=== PATIENT | female | born 1975 | race Caucasian/White ===

== ENCOUNTER 2019-03-30 22:25 | Emergency (ER) | payer OTHER ==
[2019-03-30 22:38] VITALS: BP 138/74; PULSE 61; TEMP 98.3; BMI 32.9
[2019-03-30 23:53] LABS: HEMATOCRIT 38.4 % (32.4-45.2); HEMOGLOBIN 13.2 GM/dL (10.7-15.3); MCHC 34.3 g/dl (32.0-36.0); MEAN CELL VOLUME 96.2 fl (80-96); MEAN PLT VOLUME 9.2 fl (7.5-11.1); PLATELET COUNT 251 K/MM3 (134-434); RBC 3.99 M/mm3 (3.60-5.2); RDW 13.4 % (11.6-15.6); WHITE BLOOD COUNT 8.6 K/mm3 (4.0-10.0)
[2019-03-31 00:16] LABS: INR 0.92 (0.83-1.09); PROTHROMBIN TIME (PATIENT) 10.9 SEC (9.7-13.0)
[2019-03-31 00:19] LABS: ACTIVATED PTT 31.1 SECONDS (25.2-36.5)
[2019-03-31 00:27] LABS: ALBUMIN 3.2 g/dl (3.4-5.0); ALK PHOS 61 U/L (45-117); ANION GAP 5 MMOL/L (8-16); BILIRUBIN,TOTAL 0.3 mg/dL (0.2-1); BLOOD UREA NITROGEN 19 mg/dL (7-18); CHLORIDE 102 mmol/L (98-107); CO2 27 mmol/L (21-32); CREATININE 0.6 mg/dL (0.55-1.3); GLUCOSE,RANDOM 81 mg/dL (74-106); POTASSIUM 4.8 mmol/L (3.5-5.1); SGOT/AST 35 U/L (15-37); SGPT/ALT 25 U/L (13-61); SODIUM 134 mmol/L (136-145); TOT PROT 7.2 g/dl (6.4-8.2)
--- NOTE | 2019-03-31 01:05 | PDOC ---
Documentation entered by Paulo Disla SCRIBE, acting as scribe for Layne Noyola DO. Layne Noyola DO: This documentation has been prepared by the Nighat altamirano Matthew, SCRIBE, under my direction and personally reviewed by me in its entirety. I confirm that the documentation accurately reflects all work, treatment, procedures, and medical decision making performed by me. History of Present Illness - General Chief Complaint: Vaginal Bleeding Stated Complaint: 11 WEEKS /BLEEDING Time Seen by Provider: 03/30/19 22:44 History Source: Patient Exam Limitations: No Limitations - History of Present Illness Initial Comments: 03/30/19 23:20 Patient is a 44 year old female, 11 weeks , with a significant past medical history of who presents to the ED with complaints of vaginal bleeding that began x3 days ago. Patient reports experiencing vaginal bleeding for 3 days stating the blood was red/brown in coloration. She reports calling her OB office but was unable to reach them as they are currently unavailable but states she has an appointment on friday. Patient reports coming into the ED for further evaluation after vaginal bleeding did not subside over time. Denies chest pain, sob. Denies nausea,vomiting. Denies fevers, chills. Denies contact with sick individuals, out of state travelling. Denies dysuria, hematuria. Denies constipation, diarrhea. Denies any other symptoms. Allergies: NKDA Social history: No smoking. No alcohol. No illicit drugs. Surgical history: None PMD: None Past History - Past Medical History Allergies/Adverse Reactions: Allergies Allergy/AdvReac Type Severity Reaction Status Date / Time No Known Allergies Allergy Verified 03/31/19 00:23 - Suicide/Smoking/Psychosocial Hx Smoking History: Never smoked Hx Alcohol Use: No Drug/Substance Use Hx: No Review of Systems - Review of Systems Able to Perform ROS?: Yes Comments:: 03/30/19 23:20 GENERAL/CONSTITUTIONAL: No fever or chills. No weakness. HEAD, EYES, EARS, NOSE AND THROAT: No change in vision. No ear pain or discharge. No sore throat. GASTROINTESTINAL: No nausea, vomiting, diarrhea or constipation. GENITOURINARY: +vaginal bleeding. No dysuria, frequency, or change in urination. CARDIOVASCULAR: No chest pain or shortness of breath. RESPIRATORY: No cough, wheezing, or hemoptysis. MUSCULOSKELETAL: No joint or muscle swelling or pain. No neck or back pain. SKIN: No rash NEUROLOGIC: No headache, vertigo, loss of consciousness, or change in strength/ sensation. ENDOCRINE: No increased thirst. No abnormal weight change. HEMATOLOGIC/LYMPHATIC: No anemia, easy bleeding, or history of blood clots. ALLERGIC/IMMUNOLOGIC: No hives or skin allergy. *Physical Exam - Vital Signs Last Vital Signs Temp Pulse Resp BP Pulse Ox 98.3 F 61 17 138/74 100 03/30/19 22:34 03/30/19 22:34 03/30/19 22:34 03/30/19 22:34 03/30/19 22:34 - Physical Exam Comments: 03/30/19 23:20 GENERAL: Awake, in no acute distress HEAD: No signs of trauma EYES: PERRLA, EOMI, LUNGS: Breath sounds equal, clear to auscultation bilaterally. No wheezes, and no crackles. Normal work of breathing. HEART: Regular rate and rhythm, normal S1 and S2, no murmurs, rubs or gallops ABDOMEN: Soft, nontender, normoactive bowel sounds. No guarding, no rebound. No masses. Non-distended. : Fresh blood in the vaginal vault, no active hemorrhage, cervical os closed, uterus is small and then stated dates, no tenderness CHEST WALL: BACK: No midline tenderness. EXTREMITIES: Normal range of motion, no edema. No clubbing or cyanosis. No erythema, or tenderness NEUROLOGICAL: Alert, and fully oriented x4, Cranial nerves II through XII grossly intact. Normal speech, normal gait. SKIN: Warm, Dry, normal turgor, no rashes or lesions noted. 03/31/19 00:55 ED Treatment Course - LABORATORY CBC & Chemistry Diagram: 03/30/19 23:40 03/30/19 23:11 - ADDITIONAL ORDERS Additional order review: Laboratory Results 03/30/19 03/30/19 03/30/19 23:40 23:40 23:11 PT with INR 10.90 INR 0.92 PTT (Actin FS) 31.1 Sodium 134 L Potassium 4.8 Chloride 102 Carbon Dioxide 27 Anion Gap 5 L BUN 19 H Creatinine 0.6 Creat Clearance w eGFR 108.60 Random Glucose 81 Calcium 9.0 Total Bilirubin 0.3 AST 35 ALT 25 Alkaline Phosphatase 61 Total Protein 7.2 Albumin 3.2 L Beta HCG, Quant 6623.0 03/30/19 23:40 RBC 3.99 MCV 96.2 H MCHC 34.3 RDW 13.4 MPV 9.2 - RADIOLOGY Radiology Studies Ordered: Category Date Time Status TRANSVAGINAL US PREG [US] Stat Ultrasound 03/30/19 23:11 Taken *DC/Admit/Observation/Transfer Diagnosis at time of Disposition: Missed with demise before 20 completed weeks of gestation - Discharge Dispostion Disposition: HOME Condition at time of disposition: Stable Decision to Admit order: No - Referrals Referrals: Jade Edgar MD [Staff Physician] - - Patient Instructions Printed Discharge Instructions: DI for Threatened Additional Instructions: Follow-up with your REGISTRY NURSE tomorrow morning. We will need a repeat ultrasound, at this time it appears that you may have had a miscarriage. If you develop fever or heavy bleeding return to the emergency department. - Post Discharge Activity - Attestations Scribe Attestion: 03/30/19 23:10 Documentation prepared by Paulo Disla, acting as medical certification specialist for Layne Noyola DO. Physician Attestion: 03/31/19 01:00 I, Dr Layne Noyola, attest that this document has been prepared under my direction and personally reviewed by me in its entirety. I further attest, that it accurately reflects all work, procedures and medical decision making performed by me.
== END 2019-03-31 04:00 | disposition home or self-care (01) ==
LOC: JER 22:25
DX: O26.891 Other specified pregnancy related conditions, first trimester (principal); O02.1 Missed abortion; Z3A.11 11 weeks gestation of pregnancy
CPT/HCPCS: 36415; 76817-TC; 80053; 84702; 85027; 85610; 85730; 86850; 86900; 86901; 99282-25

== ENCOUNTER 2019-04-01 17:46 | Emergency (ER) | payer OTHER ==
[2019-04-01 17:51] VITALS: BMI 32.0
--- NOTE | 2019-04-01 17:52 | PDOC ---
Rapid Medical Evaluation Chief Complaint: Vaginal Bleeding Time Seen by Provider: 04/01/19 17:49 Medical Evaluation: Allergies Allergy/AdvReac Type Severity Reaction Status Date / Time No Known Allergies Allergy Verified 03/31/19 00:23 04/01/19 17:50 I have performed a brief in-person evaluation of this patient. The patient presents with a chief complaint of: 11 weeks with vaginal bleeding for 5 days which has worsened today with cramping abdominal pains Pertinent physical exam findings: A&O in moderate distress holding abdomen I have ordered the following: CBC, CMP, T&s The patient will proceed to the ED for further evaluation. Discharge Disposition - Diagnosis Vaginal bleeding - Discharge Dispostion Condition at time of disposition: Stable - Referrals - Patient Instructions - Post Discharge Activity
[2019-04-01 18:52] LABS: BASO % 0.3 % (0-2.0); EOS % 1.1 % (0-4.5); HEMOGLOBIN 12.8 GM/dL (10.7-15.3); LYMPH % 14.9 % (8-40); MCH 31.7 pg (25.7-33.7); MCHC 32.9 g/dl (32.0-36.0); MEAN CELL VOLUME 96.6 fl (80-96); MONO % 3.6 % (3.8-10.2); NEUT % 80.1 % (42.8-82.8); PLATELET COUNT 243 K/MM3 (134-434); RBC 4.04 M/mm3 (3.60-5.2); RDW 13.3 % (11.6-15.6); WHITE BLOOD COUNT 14.6 K/mm3 (4.0-10.0)
[2019-04-01 19:36] LABS: ALBUMIN 3.5 g/dl (3.4-5.0); BILIRUBIN,TOTAL 0.3 mg/dL (0.2-1); CALCIUM 9.3 mg/dL (8.5-10.1); CREATININE 0.8 mg/dL (0.55-1.3); POTASSIUM 4.1 mmol/L (3.5-5.1); TOT PROT 7.1 g/dl (6.4-8.2)
--- NOTE | 2019-04-01 19:55 | PDOC ---
History of Present Illness - General Chief Complaint: Vaginal Bleeding Stated Complaint: VAGINAL BLEED Time Seen by Provider: 04/01/19 17:49 History Source: Patient, Old Records Exam Limitations: No Limitations - History of Present Illness Travel History: No Initial Comments: 04/01/19 19:59 HISTORY OF PRESENT ILLNESS: This is a 44-year-old with an LMP- 01/17 presents emergency department for evaluation of vaginal bleeding occurring 2 pads per hour. Patient reports strong abdominal cramping rated 8/10 is located in the mid lower abdomen without radiation. Patient reports she was seen and evaluated here and 03/30 when she had an ultrasound that revealed IUP with gestational age of 6 weeks 1 day without detectable heartbeat. Patient then followed up with her NEW PRODUCT TRAINER was told similar findings on their exam. No recent travel or sick contacts. PAST MEDICAL HISTORY: Denies past medical history SURGICAL HISTORY: Denies ALLERGIES: No known drug allergies REVIEW OF SYSTEMS General/Constitutional: Denies fever or chills. Denies weakness, weight change. HEENT: Denies change in vision. Denies ear pain or discharge. Denies sore throat. Cardiovascular: Denies chest pain or shortness of breath. Respiratory: Denies cough, wheezing, or hemoptysis. Gastrointestinal: Denies nausea, vomiting, diarrhea or constipation. Denies rectal bleeding. Genitourinary: Denies dysuria, frequency, or change in urination. Musculoskeletal: Denies joint or muscle swelling or pain. Denies neck or back pain. Skin and breasts: Denies rash or easy bruising. Neurologic: Denies headache, vertigo, loss of consciousness, or loss of sensation. Psychiatric: Denies depression or anxiety. Endocrine: Denies increased thirst. Denies abnormal weight change. Hematologic/Lymphatic: Denies anemia, easy bleeding, or history of blood clots. Allergic/Immunologic: Denies hives or skin allergy. Denies latex allergy. PHYSICAL EXAM General Appearance: Well-appearing, appropriately dressed. No apparent distress , no intoxication. Respiratory/Chest: Lungs CTAB. No shortness of breath, chest tenderness, respiratory distress, accessory muscle use. No crackles, rales, rhonchi, stridor , wheezing, dullness Cardiovascular: RRR. S1, S2. No JVD, murmur, bradycardia, tachycardia. Gastrointestinal/Abdominal: Normal bowel sounds. Abdomen soft, non-distended. Suprapubic tenderness. No rebound tenderness. No organomegaly, pulsatile mass, guarding, hernia, hepatomegaly, splenomegaly. 04/01/19 20:02 Past History - Past Medical History Allergies/Adverse Reactions: Allergies Allergy/AdvReac Type Severity Reaction Status Date / Time No Known Allergies Allergy Verified 04/01/19 17:51 Home Medications: Ambulatory Orders Prenat 115/Iron Fum/Folic/Dss [ 19 Tablet] 1 each PO DAILY 04/01/19 COPD: No - Reproductive History Is Patient Now?: Yes (#): 3 Para: 2 Therapeutic (s) & number: Yes - Suicide/Smoking/Psychosocial Hx Smoking History: Never smoked Hx Alcohol Use: No Drug/Substance Use Hx: No *Physical Exam - Vital Signs Last Vital Signs Temp Pulse Resp BP Pulse Ox 97.6 F 64 16 114/78 100 04/01/19 17:49 04/01/19 17:49 04/01/19 17:49 04/01/19 17:49 04/01/19 17:49 ED Treatment Course - LABORATORY CBC & Chemistry Diagram: 04/01/19 18:38 04/01/19 18:38 - ADDITIONAL ORDERS Additional order review: Laboratory Results 04/01/19 18:38 Sodium 139 Potassium 4.1 Chloride 108 H Carbon Dioxide 25 Anion Gap 7 L BUN 18 Creatinine 0.8 Est GFR (CKD-EPI)AfAm 103.92 Est GFR (CKD-EPI)NonAf 89.66 Random Glucose 140 H Calcium 9.3 Total Bilirubin 0.3 AST 19 ALT 25 Alkaline Phosphatase 64 Total Protein 7.1 Albumin 3.5 04/01/19 18:38 RBC 4.04 MCV 96.6 H MCHC 32.9 RDW 13.3 MPV 9.0 Neutrophils % 80.1 Lymphocytes % 14.9 Monocytes % 3.6 L Eosinophils % 1.1 Basophils % 0.3 - RADIOLOGY Radiology Studies Ordered: Category Date Time Status TRANSVAGINAL US PREG [US] Stat Ultrasound 04/01/19 19:20 Ordered Medical Decision Making - Medical Decision Making 04/01/19 20:03 A/P: 44-year-old woman with vaginal bleeding and lower abdominal cramping in early status post ultrasound revealed ? demise Differential diagnosis includes but is not limited to- threatened , missed , inevitable , complete Labs Urine Transvaginal ultrasound Tylenol 1 g orally now Reassess 04/01/19 20:04 04/01/19 21:59 Ultrasound as read by Dr. Ryan: Normal thickness of the endometrial stripe without evidence of intrauterine . Heterogeneously echogenic material within the cervical canal measuring 1.5 cm in AP them mention suggestive of blood clots." Ultrasound is needed to rule out retained products of conception. There is trace fluid in the cul-de-sac. H&H-12.8/39.0. WBC 14,600. No shift noted. Beta hCG testing 2481 down from 6623 on 03/30. I will discharge the patient home to follow-up with her controller instructor for reevaluation of retained products of conception. *DC/Admit/Observation/Transfer Diagnosis at time of Disposition: Complete - Discharge Dispostion Disposition: HOME Condition at time of disposition: Stable Decision to Admit order: No - Referrals - Patient Instructions Additional Instructions: Take Tylenol or Motrin as needed for pain. Follow-up with your controller instructor for reevaluation and ultrasound to confirm that all tissue has been removed. Return to emergency department for continued bleeding requiring more than 2 pads per hour, worsening pain, fever or for any other concerns. Thank you very much for choosing us to provide your emergent health care needs. - Post Discharge Activity
[2019-04-01] MEDS ORDERED: ACETAMINOPHEN 500 MG TABLET (FP) PO ONE (20:04)
[2019-04-01] MEDS ORDERED: ACETAMINOPHEN 325 MG TABLET (FP) ONE (20:18)
[2019-04-01 21:19] LABS: EPI CELLS 2.7 /HPF (0-5/HPF); URINE APPEARANCE TURBID; URINE BACTERIA 3.4 /hpf (NEGATIVE); URINE BILIRUBIN 1+ (NEGATIVE); URINE CASTS 40 /lpf (0-8); URINE COLOR DK YELLOW; URINE GLUCOSE (UA) NEGATIVE (NEGATIVE); URINE KETONE TRACE (NEGATIVE); URINE LEUK ESTERASE TRACE (NEGATIVE); URINE NITRITE NEGATIVE (NEGATIVE); URINE PROTEIN 2+ (NEGATIVE); URINE RBC 1273 /hpf (0-4); URINE WBC 8 /hpf (0-5)
[2019-04-01] MEDS ORDERED: IBUPROFEN 600 MG TABLET (FP) PO ONE ×2 (22:07→22:24)
[2019-04-01 23:38] VITALS: BP 126/77; PULSE 89; TEMP 98.5
== END 2019-04-01 22:30 | disposition home or self-care (01) ==
LOC: JER 17:46
DX: O26.891 Other specified pregnancy related conditions, first trimester (principal); O03.9 Complete or unspecified spontaneous abortion without complication; Z3A.01 Less than 8 weeks gestation of pregnancy
CPT/HCPCS: 36415; 76817-TC; 80053; 81003; 84702; 85025; 87086; 99283-25